=== PATIENT | male | born 1965 | race Caucasian/White ===

== ENCOUNTER → 2017-10-21 | Outpatient (CLI) | payer OTHER ==
--- NOTE | 2017-10-21 12:38 | MR ---
EXAMINATION TYPE: MR brain wo/w con DATE OF EXAM: 10/21/2017 COMPARISON: 08/14/2012, 09/26/2012 HISTORY: Headaches TECHNIQUE: Multiplanar, multisequence images of the brain and brainstem is performed without and with IV contras t, utilizing 9 mL intravenous Gadavist . FINDINGS: Diffusion weighted images demonstrate no evidence of a recent infarct or other diffusion ab normality. There is no extra-axial fluid collection or significant white matter signal abnormality. The ventricular system and cisternal spaces are normal in size and appearance. The brain volume is age appropriate. Midline structures demonstrate normal morphology. The craniocervical junction appears within normal limits. Post contrast images demonstrate no abnormal enhancement. Changes of chronic sinusitis noted. White matter: There are approximately 25-30 areas of abnormal signal the white matter scattered bilat erally. No callosal lesions. No enhancing lesions. No lesions perpendicular to ventricular system. Fi ndings are stable. IMPRESSION: 1. No acute process. 2. Stable nonspecific white matter changes. Differential diagnosis would include migraine headaches, remote microvascular ischemia, hypertension, although demyelinating disease not entirely excluded.
== END | disposition home or self-care (01) ==
LOC: RADMRIMAIN 11:49
PROVIDERS: ATTEND Family Medicine
DX: R90.82 White matter disease, unspecified (principal); M54.2 Cervicalgia; R53.82 Chronic fatigue, unspecified
CPT/HCPCS: 70553; A9581

== ENCOUNTER → 2017-12-16 | Outpatient (CLI) | payer OTHER ==
--- NOTE | 2017-12-16 08:55 | MR ---
EXAMINATION TYPE: MR cervical spine wo con DATE OF EXAM: 12/16/2017 8:46 AM COMPARISON: NONE HISTORY: Cervicalgia Multiplanar MultiSpin echo imaging of the cervical spine was performed. Comparison: none C2-C3: No evidence for degenerative disc disease. No disc bulge/herniation or protrusion. No Canal stenosis. Foramina are patent bilaterally. C3-C4: No evidence for degenerative disc disease. No disc bulge/herniation or protrusion. No Canal stenosis. Foramina are patent bilaterally. C4-C5: No evidence for degenerative disc disease. No disc bulge/herniation or protrusion. No Canal stenosis. Foramina are patent bilaterally. C5-C6: No evidence for degenerative disc disease. No disc bulge/herniation or protrusion. No Canal stenosis. Foramina are patent bilaterally. C6-C7: Mild disc desiccation. Mild posterior disc bulge with mild effacement ventral thecal sac. No e vidence for central stenosis or cord contact. Mild right foraminal encroachment. C7-T1: No evidence for degenerative disc disease. No disc bulge/herniation or protrusion. No Canal stenosis. Foramina are patent bilaterally. Cervical segments are intact. There is normal alignment. Cervical spinal cord is of normal signal. Craniovertebral junction relationships are within normal limits. IMPRESSION: 1. Disc desiccation and disc bulging C6-C7.
== END | disposition home or self-care (01) ==
LOC: RADMRIMAIN 07:59
PROVIDERS: ATTEND Psychiatry & Neurology Pain Medicine
DX: M50.223 Other cervical disc displacement at C6-C7 level (principal); Z88.6 Allergy status to analgesic agent
CPT/HCPCS: 72141

== ENCOUNTER → 2020-02-08 | Outpatient (CLI) | payer OTHER ==
--- NOTE | 2020-02-08 10:29 | XR ---
EXAMINATION TYPE: XR lumbar spine 2 or 3V DATE OF EXAM: 02/08/2020 CLINICAL HISTORY: Increasing low back pain with no known injury TECHNIQUE: Frontal and lateral images of the lumbar spine are obtained. COMPARISON: None FINDINGS: There are 5 lumbar type vertebral bodies identified. The lumbar spine shows satisfactory alignment. Minimal inferior endplate vertebral body height loss of L1 is likely on the basis of degen erative disc disease. Mild facet arthropathy at L4-L5 and L5-S1. Very small anterior osteophytes. Min imal intervertebral disc space narrowing at L2-L3. The overlying soft tissue appears unremarkable. IMPRESSION: 1. Inferior endplate vertebral body height loss of L1 may be on the basis of degenerative disc diseas e or mild age indeterminant compression deformity. Correlate for point tenderness. MRI could further evaluate this finding. 2. Mild degenerative disc disease of the lumbar spine.
== END | disposition home or self-care (01) ==
LOC: RADXRYALE 10:05
PROVIDERS: ATTEND Family Medicine
DX: M51.36 Other intervertebral disc degeneration, lumbar region (principal)
CPT/HCPCS: 72100

== ENCOUNTER → 2024-10-02 | Outpatient (CLI) | payer OTHER ==
--- NOTE | 2024-10-02 10:01 | XR ---
EXAMINATION TYPE: XR cervical spine 5 views comp DATE OF EXAM: 10/02/2024 COMPARISON: None CLINICAL INDICATION: Male, 59 years old with history of [id number] CERVICALGIA,CDD; FINDINGS: Normal odontoid view. Mild degenerative disc disease with disc space narrowing C6-C7. Alignment is ma intained. Additional mild to moderate facet and uncovertebral joint arthropathy lower cervical spine. Changes result in mild to moderate bony neuroforaminal narrowing on the right at C6-C7 and mild on b oth sides at C7-T1. No predental space widening or prevertebral soft tissue swelling. IMPRESSION: Mild facet and uncovertebral joint arthropathy lower cervical spine. Mild degenerative di sc disease C6-C7. Changes may result in a mild to moderate bony neural foraminal narrowing on the rig ht at C6-C7. [facility], Workstation: [id number], 10/02/2024 9:59 AM
== END | disposition home or self-care (01) ==
LOC: RADXRYALE 09:28
PROVIDERS: ATTEND Family Medicine
DX: M50.323 Other cervical disc degeneration at C6-C7 level (principal); M47.812 Spondylosis without myelopathy or radiculopathy, cervical region; M99.71 Connective tissue and disc stenosis of intervertebral foramina of cervical region
CPT/HCPCS: 72050